=== PATIENT | female | born 1975 | race African-American/Black ===

== ENCOUNTER → 2023-02-11 | Emergency (ER) | payer OTHER ==
[~2023-02-11] VITALS: Ht 157.5 cm; Wt 66.7 kg
--- NOTE | 2023-02-11 20:58 | NUR ---
PT IN BED 12 TOLORATING ROOM AIR A/O X4. C/O INTERMITANT CHEST PAIN 06/17 STATES THAT IT HAS BEEN OFF AND ON FOR 1 WK. PT DRINKS COFFEE AND CLAIMS TO HAVE ANXIETY. PT IN BED HIGH FOWLERS, SIDE RAILS UP CONNECTED TO BED SIDE MONTIOR.
--- NOTE | 2023-02-11 21:34 | NUR ---
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
[2023-02-11 21:50] VITALS: BP 128/76
[2023-02-11 22:00] LABS: BASOPHILS # (AUTO) 0.1 K/uL (0.0-0.2); EOSINOPHILS % (AUTO) 1.5 % (0.0-6.0); HEMATOCRIT 38 % (33-45); HEMOGLOBIN 13.1 g/dL (11.5-14.8); LYMPHOCYTES # (AUTO) 3.3 K/uL (0.8-4.8); LYMPHOCYTES % (AUTO) 53.3 % (20.0-44.0); MEAN CORPUSCULAR HGB CONC 34 g/dl (31.0-36.0); MEAN CORPUSCULAR VOLUME 95 fL (82-100); MONOCYTES # (AUTO) 0.4 K/uL (0.1-1.30); MONOCYTES % (AUTO) 6.9 % (2.0-12.0); NEUTROPHILS # (AUTO) 2.3 K/uL (1.8-8.9); NEUTROPHILS % (AUTO) 37.3 % (43.0-81.0); PLATELET COUNT (AUTO) 363 K/uL (150-450); RED BLOOD CELL COUNT(AUTO) 4.03 MIL/uL (4.0-5.2); WHITE BLOOD COUNT (AUTO) 6.2 K/uL (4.3-11.0)
[2023-02-11 23:28] LABS: CALCIUM, SERUM 9.4 mg/dL (8.5-10.1); CARBON DIOXIDE 30 mmol/L (21-32); CHLORIDE 104 mmol/L (98-107); CREATININE 0.7 mg/dL (0.6-1.3); GLUCOSE 93 mg/dL (74-106); POTASSIUM 4.2 mmol/L (3.5-5.1); SODIUM SERUM 140 mmol/L (136-145); UREA NITROGEN, BLOOD 12 mg/dL (7-18)
== END | disposition home or self-care (01) ==
LOC: ER 19:54
DX: R07.9 Chest pain, unspecified (principal); Z60.2 Problems related to living alone
CPT/HCPCS: 36415; 71045-TC; 80048-TC; 84484-TC; 85025-TC

== ENCOUNTER 2023-06-05 18:48 | Emergency (ER) | payer OTHER ==
[~2023-06-05] VITALS: Ht 157.5 cm; Wt 65.8 kg
[2023-06-05 19:15] VITALS: BP 122/82; TEMP 98.1; O2SAT 100
--- NOTE | 2023-06-05 19:15 | NUR ---
ABDOMINAL PAIN STARTED 1 WKS AGO. at the hypogastric area w/ uysuria. went to see a clinic and was told she has a yeast infection was given unrecalled med.
--- NOTE | 2023-06-05 19:20 | NUR ---
urine collected, sent to lab
[2023-06-05 19:43] LABS: BILIRUBIN,URINE NEGATIVE (NEGATIVE); COLOR,URINE YELLOW (YELLOW); LEUKOCYTE ESTERASE ,URINE 2+ (NEGATIVE); NITRITE, URINE POSITIVE (NEGATIVE); PROTEIN,URINE 2+ mg/dl (NEGATIVE); UGLUCOSE NEGATIVE (NEGATIVE)
[2023-06-05 19:50] LABS: BASOPHILS % (AUTO) 0.7 % (0.0-2.0); EOSINOPHILS % (AUTO) 0.8 % (0.0-6.0); HEMATOCRIT 37 % (33-45); HEMOGLOBIN 12.7 g/dL (11.5-14.8); LYMPHOCYTES # (AUTO) 2.4 K/uL (0.8-4.8); LYMPHOCYTES % (AUTO) 34.7 % (20.0-44.0); MEAN CORPUSCULAR HGB CONC 35 g/dl (31.0-36.0); MEAN CORPUSCULAR VOLUME 93 fL (82-100); MONOCYTES # (AUTO) 0.3 K/uL (0.1-1.30); MONOCYTES % (AUTO) 4.8 % (2.0-12.0); NEUTROPHILS # (AUTO) 4.1 K/uL (1.8-8.9); PLATELET COUNT (AUTO) 337 K/uL (150-450); RED BLOOD CELL COUNT(AUTO) 3.93 MIL/uL (4.0-5.2); WHITE BLOOD COUNT (AUTO) 6.9 K/uL (4.3-11.0)
[2023-06-05 19:57] LABS: BACTERIA,URINE 3+ /HPF (None Seen); CALCIUM OXALATE CRYSTALS,UR Moderate /HPF (None Seen); MUCUS,URINE Moderate /LPF (None Seen); WBC,URINE 81-100 /HPF (0-3)
[2023-06-05 20:06] LABS: CALCIUM, SERUM 9.9 mg/dL (8.5-10.1); CREATININE 0.7 mg/dL (0.6-1.3)
[2023-06-05 20:12] LABS: ALBUMIN 3.8 g/dL (3.4-5.0); BILIRUBIN,DIRECT 0.1 mg/dL (0.0-0.2); BILIRUBIN,TOTAL 0.4 mg/dL (0.2-1.0); TOTAL PROTEIN, SERUM 7.4 g/dL (6.4-8.2)
--- NOTE | 2023-06-05 20:14 | NUR ---
PT TAKEN TO CT VIA [facility]
[2023-06-05] MEDS ORDERED: CEFTRIAXONE 1GM BAG (ER ONLY) 1 GM/50 ML PIGGYBACK IV ONE (21:00)
[2023-06-05] MEDS ORDERED: LIDOCAINE /MPF 1% VIAL 5 ML VIAL ONE (21:07)
[2023-06-05] MEDS ORDERED: CEFTRIAXONE 1 G VIAL ONE (21:07)
[2023-06-05] MEDS ORDERED: CEPH500C2 PO (21:38)
--- NOTE | 2023-06-05 21:48 | NUR ---
Patient discharged to home in stable condition. Written and verbal after care instructions given. Patient verbalizes understanding of instruction.
== END 2023-06-05 21:49 | disposition home or self-care (01) ==
LOC: ER 18:50
DX: N39.0 Urinary tract infection, site not specified (principal); R10.30 Lower abdominal pain, unspecified; Z60.2 Problems related to living alone
CPT/HCPCS: 99285; 74176; 96365; 85025; 80048; 87086; 83690; 80076; 84703; 81001; 36415; J0696; J3490